=== PATIENT | female | born 1980 | race Caucasian/White ===

== ENCOUNTER 2016-09-24 14:21 | Emergency (ER) | payer OTHER ==
[2016-09-24 14:33] VITALS: BP 114/67
--- NOTE | 2016-09-24 15:00 | XRAY Preliminary Report ---
Exam: XR Foot 3 View LT IMPRESSION: Soft tissue swelling. No evidence of acute fracture. [facility] SITE ID: [id number]
--- NOTE | 2016-09-24 15:03 | XRAY Report ---
EXAM: LEFT FOOT RADIOGRAPHY EXAM DATE: 09/24/2016 02:53 PM. CLINICAL HISTORY: Injured foot while running. COMPARISON: None. TECHNIQUE: 3 views. FINDINGS: Bones: Normal. No fractures or bone lesions. Joints: Normal. No subluxations. Soft Tissues: Lateral soft tissue swelling. IMPRESSION: Soft tissue swelling. No evidence of acute fracture. [facility] Referring Provider Line: [phone] SITE ID: [id number]
--- NOTE | 2016-09-24 15:13 | ED Physician Documentation ---
PD HPI LOWER EXT INJURY - Stated complaint Stated Complaint: LEFT FOOT INJ - Chief complaint Chief Complaint: Ext Problem - History obtained from History obtained from: Patient - History of Present Illness PD HPI LOW EXT INJURY LOCATION: Left, Foot Type of injury: Other (She was doing a trial run today and came down to hard with her toes pointed down and has pain in the area of the first metatarsal head , she can walk but is favoring on her heel. 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 - Present Medications Home Medications: Ambulatory Orders Medication Instructions Recorded Confirmed Fluticasone [Flonase] 1 spray PO DAILY 09/24/16 09/24/16 HYDROcod/ACETAM 5/325 [[place] 5/325] 1 - 2 ea PO Q6H PRN #10 tablet 09/24/16 Loratadine [Claritin] 10 mg PO DAILY 09/24/16 09/24/16 - Allergies Allergies/Adverse Reactions: Allergies Allergy/AdvReac Type Severity Reaction Status Date / Time No Known Drug Allergies Allergy Verified 09/24/16 14:33 - Social History Does the pt smoke?: No Smoking Status: Never smoker Does the pt drink ETOH?: Yes Does the pt have substance abuse?: No PD ED PE NORMAL - Vitals Vital signs reviewed: Yes - General General: Alert and oriented X 3, No acute distress - Extremities Extremities: Other (Tender to the big toe and proximally to that, no other foot or ankle tenderness. NVI in the foot.) - Psych Psych: Normal mood, Normal affect Results - Vitals Vitals: Vital Signs - 24 hr 09/24/16 14:31 Temperature 36.7 C Heart Rate 106 H Respiratory 16 Rate Blood Pressure 114/67 O2 Saturation 100 - Rads (name of study) L foot 3v Radiology: EMP read contemporaneously (NAD) Departure - Departure Disposition: 01 Home, Self Care Clinical Impression: Sprain of left foot Qualifiers: Encounter type: initial encounter Qualified Code(s): S93.602A - Unspecified sprain of left foot, initial encounter Condition: Good Record reviewed to determine appropriate education?: Yes Instructions: ED Sprain Foot Prescriptions: HYDROcod/ACETAM 5/325 [[place] 5/325] 1 - 2 ea PO Q6H PRN #10 tablet PRN Reason: Pain Comments: Recheck with your physician in 1 week if not better
== END 2016-09-24 15:42 | disposition home or self-care (01) ==
LOC: ED 14:21
DX: S93.602A Unspecified sprain of left foot, initial encounter (principal); W22.09XA Striking against other stationary object, initial encounter; Y93.02 Activity, running
CPT/HCPCS: 99283

== ENCOUNTER 2016-12-30 12:10 | Emergency (ER) | payer OTHER ==
[2016-12-30] MEDS ORDERED: SODIUM CHLORIDE 0.9% 1,000 ML IV ONE (13:19)
[2016-12-30 13:25] LABS: BASOPHILS % (AUTO) 0.4 %; EOSINOPHILS % (AUTO) 0.3 %; HCT - HEMATOCRIT 38.3 % (37.0-47.0); HGB - HEMOGLOBIN 13.1 g/dL (12.0-16.0); LYMPHOCYTES # (AUTO) 1.8 10^3/uL (1.5-3.5); LYMPHOCYTES % (AUTO) 18.8 %; MEAN CORPUSCULAR HEMOGLOBIN 32.3 pg (27.0-31.0); MEAN CORPUSCULAR HGB CONC 34.1 g/dL (32.0-36.0); MEAN CORPUSCULAR VOLUME 94.6 fL (81.0-99.0); MEAN PLATELET VOLUME 9.5 fL (7.9-10.8); MONOCYTES # (AUTO) 0.5 10^3/uL (0.0-1.0); MONOCYTES % (AUTO) 5.4 %; NEUTROPHILS # (AUTO) 7.1 10^3/uL (1.5-6.6); NEUTROPHILS % (AUTO) 75.1 %; RED BLOOD COUNT 4.05 10^6/uL (4.20-5.40); RED CELL DISTRIBUTION WIDTH 12.7 % (12.0-15.0); UNCORRECTED WHITE BLOOD COUNT 9.4 x10^3/uL; WHITE BLOOD COUNT 9.4 x10^3/uL (4.8-10.8)
--- NOTE | 2016-12-30 13:28 | ED Physician Documentation ---
History of Present Illness - Stated complaint Stated Complaint: Rapid HR/Dizziness - Chief complaint Chief Complaint: Cardiac - History obtained from History obtained from: Patient, Family, EMS - History of Present Illness Timing: Today - Additonal information Additional information: 36 y/o female Who had a IUD placed yesterday was in the store today buying makeup when she began to feel lightheaded and dizzy she went to sit down and felt her heart beating rapidly. She called the ambulance and her heart was beating at 130 bpm when the ambulance picked her up. She has subsequently come to a normal resting heart rate and she is now without symptoms. She did not feel ill prior to any of this has not had recent illness and does not have significant pain anywhere. She has had minimal cramping in the pelvis she has not had any bleeding. 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 - Present Medications Home Medications: Ambulatory Orders Medication Instructions Recorded Confirmed Fluticasone [Flonase] 1 spray PO DAILY 09/24/16 12/30/16 Loratadine [Claritin] 10 mg PO DAILY 09/24/16 12/30/16 - Allergies Allergies/Adverse Reactions: Allergies Allergy/AdvReac Type Severity Reaction Status Date / Time No Known Drug Allergies Allergy Verified 12/30/16 12:16 - Social History Does the pt smoke?: No Smoking Status: Never smoker Does the pt drink ETOH?: Yes Does the pt have substance abuse?: No PD ED PE NORMAL - Vitals Vital signs reviewed: Yes (Hypertensive mild) - General General: Alert and oriented X 3, No acute distress, Well developed/nourished - HEENT HEENT: Atraumatic, PERRL, EOMI, Ears normal, Moist mucous membranes, Pharynx benign, Dentition benign - Neck Neck: Supple, no meningeal sign, No bony TTP - Cardiac Cardiac: RRR, No murmur - Respiratory Respiratory: No respiratory distress, Clear bilaterally - Abdomen Abdomen: Normal bowel sounds, Soft, Non tender, Non distended - Back Back: No CVA TTP, No spinal TTP - Derm Derm: Normal color, Warm and dry, No rash - Extremities Extremities: No deformity, No edema - Neuro Neuro: Alert and oriented X 3, No motor deficit, No sensory deficit, Normal speech - Psych Psych: Normal mood, Normal affect Results - Vitals Vitals: Vital Signs - 24 hr 12/30/16 12/30/16 12/30/16 12:10 12:11 13:46 Temperature 36.3 C L Heart Rate 95 66 Respiratory 18 21 Rate Blood Pressure 131/71 H 106/70 Blood Pressure 121/51 L [Left] Blood Pressure 128/63 [Right] O2 Saturation 100 98 12/30/16 12/30/16 14:03 14:59 Temperature Heart Rate 79 Respiratory 18 Rate Blood Pressure 108/57 L 99/63 Blood Pressure [Left] Blood Pressure [Right] O2 Saturation 98 Oxygen O2 Source Room air - EKG (time done) 1217 Rate: Rate (enter#) (90) Rhythm: LAE Ischemia: Normal ST segments Compare to prior EKG: Old EKG unavailable Computer interpretation: Agree with computer - Labs Labs: Laboratory Tests 12/30/16 12/30/16 12/30/16 12:25 12:25 12:25 WBC 9.4 RBC 4.05 L Hgb 13.1 Hct 38.3 MCV 94.6 MCH 32.3 H MCHC 34.1 RDW 12.7 Plt Count 268 MPV 9.5 Neut # 7.1 H Lymph # 1.8 Brule # 0.5 Eos # 0.0 Baso # 0.0 Absolute Nucleated RBC 0.00 Nucleated RBC % 0.0 Sodium 139 Potassium 3.4 L Chloride 101 Carbon Dioxide 25 Anion Gap 13.0 BUN 13 Creatinine 0.8 Estimated GFR (MDRD) 82 L Glucose 103 H Calcium 9.3 Total Bilirubin 0.7 AST 23 ALT 17 Alkaline Phosphatase 48 Troponin I < 0.04 Total Protein 7.7 Albumin 4.9 Globulin 2.8 Albumin/Globulin Ratio 1.8 Lipase 20 L TSH Urine Color Urine Clarity Urine pH Ur Specific [place] Urine Protein Urine Glucose (UA) Urine Ketones Urine Occult Blood Urine Nitrite Urine Bilirubin Urine Urobilinogen Ur Leukocyte Esterase Ur Microscopic Review Urine Culture Comments Urine HCG, Qual Urine Opiates Screen Ur Oxycodone Screen Urine Methadone Screen Ur Propoxyphene Screen Ur Barbiturates Screen Ur Tricyclics Screen Ur Phencyclidine Scrn Ur Amphetamine Screen U Methamphetamines Scrn U Benzodiazepines Scrn Urine Cocaine Screen U Cannabinoids Screen 12/30/16 12/30/16 12/30/16 12:25 13:35 13:35 WBC RBC Hgb Hct MCV MCH MCHC RDW Plt Count MPV Neut # Lymph # [place] # Eos # Baso # Absolute Nucleated RBC Nucleated RBC % Sodium Potassium Chloride Carbon Dioxide Anion Gap BUN Creatinine Estimated GFR (MDRD) Glucose Calcium Total Bilirubin AST ALT Alkaline Phosphatase Troponin I Total Protein Albumin Globulin Albumin/Globulin Ratio Lipase TSH 1.32 Urine Color YELLOW Urine Clarity CLEAR Urine pH 6.0 Ur Specific [place] 1.015 Urine Protein NEGATIVE Urine Glucose (UA) NEGATIVE Urine Ketones TRACE Urine Occult Blood NEGATIVE Urine Nitrite NEGATIVE Urine Bilirubin NEGATIVE Urine Urobilinogen 0.2 (NORMAL) Ur Leukocyte Esterase NEGATIVE Ur Microscopic Review NOT INDICATED Urine Culture Comments NOT INDICATED Urine HCG, Qual NEGATIVE Urine Opiates Screen NEGATIVE Ur Oxycodone Screen NEGATIVE Urine Methadone Screen NEGATIVE Ur Propoxyphene Screen NEGATIVE Ur Barbiturates Screen NEGATIVE Ur Tricyclics Screen NEGATIVE Ur Phencyclidine Scrn NEGATIVE Ur Amphetamine Screen NEGATIVE U Methamphetamines Scrn NEGATIVE U Benzodiazepines Scrn NEGATIVE Urine Cocaine Screen NEGATIVE U Cannabinoids Screen NEGATIVE Procedures - IVC sono (time) 1314 Bedside IVC sono: IVC measures (cm) (1.20), IVC collapsed c insp (cm) (complete) , Dehydration PD MEDICAL DECISION MAKING - ED course Complexity details: reviewed results, re-evaluated patient, considered differential, d/w patient, d/w family ED course: 36-year-old female with no specific past history has had an IUD placed yesterday and today has had an episode of rapid heart rate. She is found on interrogation of the inferior vena cava to be dehydrated and she is administered a liter of saline intravenously. I did look at the pelvis with the ultrasound did not find any evidence of free fluid. She is given a liter of saline and 25 mEq of potassium. She does admit to 4 drinks last night. Departure - Departure Disposition: 01 Home, Self Care Clinical Impression: Dehydration Condition: Stable Instructions: ED Dehydration Follow-Up: ELROY King [Provider Group]
[2016-12-30 13:36] LABS: ALBUMIN/GLOBULIN RATIO 1.8 (1.0-2.2); BILIRUBIN,TOTAL 0.7 mg/dL (0.2-1.0); CALCIUM 9.3 mg/dL (8.5-10.3); CREATININE 0.8 mg/dL (0.4-1.0); POTASSIUM 3.4 mmol/L (3.5-5.0); TOTAL PROTEIN 7.7 g/dL (6.7-8.2)
[2016-12-30 13:53] LABS: BILIRUBIN,URINE NEGATIVE (NEGATIVE)
[2016-12-30 13:56] LABS: HCG UR QUAL NEGATIVE; UA CHARGE (STRIP ONLY) YES; UR CULTURE IF IND NOT INDICATED
[2016-12-30] MEDS ORDERED: POTASSIUM BICARB 25 MEQ TABLET PO STA (13:58)
--- NOTE | 2016-12-30 14:02 | XRAY Preliminary Report ---
Exam: XR CHEST 2 VIEW PA/LAT IMPRESSION: 1. No definite acute abnormality. 2. Left retrocardiac mild probable atelectasis or scarring. [facility] SITE ID: [id number]
--- NOTE | 2016-12-30 14:05 | XRAY Report ---
EXAM: CHEST RADIOGRAPHY EXAM DATE: 12/30/2016 01:21 PM. CLINICAL HISTORY: Chest pain . COMPARISON: None. TECHNIQUE: 2 views. FINDINGS: Lungs/Pleura: No definite acute infiltrate or pulmonary consolidation. Mild left retrocardiac probabl e atelectasis or scarring. Mediastinum: Heart and mediastinal contours are unremarkable. Other: None. IMPRESSION: 1. No definite acute abnormality. 2. Left retrocardiac mild probable atelectasis or scarring. [facility] Referring Provider Line: [phone] SITE ID: [id number]
[2016-12-30] MEDS ORDERED: POTASSIUM BICARB 25 MEQ TABLET PO ONE (14:37)
[2016-12-30 15:00] VITALS: BP 99/63
== END 2016-12-30 15:38 | disposition home or self-care (01) ==
LOC: EDUNIT# → ED 12:10
DX: E86.0 Dehydration (principal); Z97.5 Presence of (intrauterine) contraceptive device
CPT/HCPCS: 36415; 71020; 80053; 80306; 81003; 81025; 83690; 84443; 84484; 85025; 93005; 96360; 99283; 99284; A9270; 81001; 87086

== ENCOUNTER 2017-02-18 13:24 | Outpatient (CLI) | payer OTHER | END 2017-02-18 13:25 | disposition short-term general hospital (02) | LOC: EMS 13:24 | PROVIDERS: ATTEND Surgery | DX: R00.0 Tachycardia, unspecified (principal) | CPT/HCPCS: A0425; A0427 ==

== ENCOUNTER 2017-03-12 23:24 | Outpatient (CLI) | payer OTHER | END 2017-03-12 23:25 | disposition short-term general hospital (02) | LOC: EMS 23:24 | PROVIDERS: ATTEND Surgery | DX: R07.9 Chest pain, unspecified (principal); R42 Dizziness and giddiness | CPT/HCPCS: A0425; A0427 ==

== ENCOUNTER 2017-04-05 21:27 | Outpatient (CLI) | payer OTHER | END 2017-04-05 21:28 | disposition short-term general hospital (02) | LOC: EMS 21:27 | PROVIDERS: ATTEND Surgery | DX: R07.9 Chest pain, unspecified (principal) | CPT/HCPCS: A0425; A0427; A0888 ==

== ENCOUNTER 2017-06-26 09:31 | Outpatient (CLI) | payer OTHER | END 2017-06-26 09:32 | disposition home or self-care (01) | LOC: SC 09:31 | PROVIDERS: ATTEND Internal Medicine Pulmonary Disease | DX: G47.30 Sleep apnea, unspecified (principal); G47.10 Hypersomnia, unspecified; G47.8 Other sleep disorders; R06.83 Snoring | CPT/HCPCS: 99203; 99212 ==

== ENCOUNTER 2017-08-19 20:30 | Outpatient (CLI) | END 2017-08-19 20:31 | disposition home or self-care (01) ==

== ENCOUNTER 2017-09-18 13:07 | Outpatient (CLI) | payer OTHER | END 2017-09-18 13:08 | disposition home or self-care (01) | LOC: SC 13:07 | PROVIDERS: ATTEND Nurse Practitioner Family | DX: G47.33 Obstructive sleep apnea (adult) (pediatric) (principal) | CPT/HCPCS: 99212; 99214 ==

== ENCOUNTER 2019-02-04 02:13 | Outpatient (CLI) | payer OTHER | END 2019-02-04 02:14 | disposition critical access hospital (66) | LOC: EMS 02:13 | PROVIDERS: ATTEND Surgery | DX: R45.851 Suicidal ideations (principal) | CPT/HCPCS: A0425; A0429 ==

== ENCOUNTER 2019-02-04 02:26 | Emergency (ER) | payer OTHER ==
[2019-02-04 02:57] LABS: MUDS CUTOFF CONCENTRATIONS CUTOFF CONC BELOW:
[2019-02-04 03:00] LABS: BILIRUBIN,URINE NEGATIVE (NEGATIVE); GLUCOSE, URINE (UA) NEGATIVE (NEGATIVE); KETONES,URINE (UA) NEGATIVE (NEGATIVE); LEUKOCYTE ESTERASE, URINE NEGATIVE (NEGATIVE); NITRITE,URINE NEGATIVE (NEGATIVE); OCCULT BLOOD,URINE NEGATIVE (NEGATIVE); PH,URINE 5.5 PH (5.0-7.5); PROTEIN,URINE NEGATIVE (NEGATIVE); UROBILINOGEN,URINE 0.2 (NORMAL) E.U./dL (NORMAL)
[2019-02-04 03:03] LABS: CLARITY,URINE CLEAR (CLEAR); HCG UR QUAL NEGATIVE
[2019-02-04 03:06] LABS: BASOPHILS % (AUTO) 0.5 %; EOSINOPHILS # (AUTO) 0.1 10^3/uL (0.0-0.7); EOSINOPHILS % (AUTO) 1.2 %; LYMPHOCYTES # (AUTO) 2.4 10^3/uL (1.5-3.5); LYMPHOCYTES % (AUTO) 32.7 %; MEAN CORPUSCULAR HEMOGLOBIN 32.7 pg (27.0-31.0); MEAN CORPUSCULAR HGB CONC 32.7 g/dL (32.0-36.0); MEAN PLATELET VOLUME 10.3 fL (7.9-10.8); MONOCYTES # (AUTO) 0.4 10^3/uL (0.0-1.0); MONOCYTES % (AUTO) 5.5 %; NEUTROPHILS # (AUTO) 4.4 10^3/uL (1.5-6.6); NEUTROPHILS % (AUTO) 59.8 %; PLT - PLATELET COUNT 292 10^3/uL (130-450); RED BLOOD COUNT 3.97 10^6/uL (4.20-5.40); RED CELL DISTRIBUTION WIDTH 12.6 % (12.0-15.0); WHITE BLOOD COUNT 7.4 x10^3/uL (4.8-10.8)
[2019-02-04 03:08] LABS: AMPHETAMINE SCREEN,URINE NEGATIVE (NEGATIVE); BENZODIAZEPINES SCREEN, URINE NEGATIVE (NEGATIVE); COCAINE SCREEN URINE NEGATIVE (NEGATIVE); METHADONE SCREEN, URINE NEGATIVE (NEGATIVE); METHAMPHETAMINES SCREEN, URINE NEGATIVE (NEGATIVE); OPIATE SCREEN, URINE NEGATIVE (NEGATIVE); OXYCODONE SCREEN, URINE NEGATIVE (NEGATIVE); PROPOXYPHENE SCREEN, URINE NEGATIVE (NEGATIVE); TRICYCLIC ANTIDEPRESSANT,URINE NEGATIVE (NEGATIVE)
[2019-02-04 03:21] LABS: ACETAMINOPHEN < 10 ug/mL (10-30); ALBUMIN 4.5 g/dL (3.2-5.5); ALBUMIN/GLOBULIN RATIO 1.4 (1.0-2.2); ALKALINE PHOSPHATASE 48 IU/L (42-121); ALT ALANINE AMINOTRANSFERASE 47 IU/L (10-60); AST ASPARTATE AMINOTRANSFERASE 34 IU/L (10-42); BILIRUBIN,TOTAL 0.3 mg/dL (0.2-1.0); BUN - BLOOD UREA NITROGEN 9 mg/dL (6-20); CALCIUM 8.9 mg/dL (8.5-10.3); CARBON DIOXIDE - CO2 23 mmol/L (21-32); CHLORIDE 108 mmol/L (101-111); CREATININE 0.6 mg/dL (0.4-1.0); GFR - MDRD 112 (>89); GLUCOSE 100 mg/dL (70-100); LIPASE 24 U/L (22-51); SALICYLATE < 6.0 mg/dL; SODIUM 144 mmol/L (135-145); TOTAL PROTEIN 7.7 g/dL (6.7-8.2)
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
[2019-02-04 15:52] VITALS: BP 102/46
--- NOTE | 2019-02-04 19:33 | ED Physician Documentation ---
ED Addendum - Addendum Addendum: 02/04/19 19:31 The patient was seen by social work. Awaiting repeat blood alcohol level. The repeat level came back showing legally sober. She was evaluated again by social work. I also talked with her again myself. At this point the patient states she is not feeling suicidal. She feels she was disinhibited by the alcohol. Social work talked with her [place] There is a plan in place for the patient to be with her friend lizette and her command will check with her no follow-up with counseling tomorrow. The patient contracted for safety in writing. She was discharged stable from the department. Diagnoses: Depressive affect Suicidal ideation Alcohol intoxication Disposition: Patient is discharged stable from the ER.
== END 2019-02-04 17:19 | disposition home or self-care (01) ==
LOC: EDUNIT# → ED 02:26
DX: F32.9 Major depressive disorder, single episode, unspecified (principal); R45.851 Suicidal ideations; F10.929 Alcohol use, unspecified with intoxication, unspecified
CPT/HCPCS: 36415; 80053; 80306; 80307; 80320; 80329; 81001; 81003; 81025; 83690; 84443; 85025; 87086; 99282; 99283